=== PATIENT | male | born 1985 | race Caucasian/White ===

== ENCOUNTER → 2017-08-06 | Outpatient (REF) ==
--- NOTE | 2017-08-06 15:39 | Diagnostic Imaging Report ---
INDICATION: Pre-MRI screening. TIME OF EXAMINATION: 3:44 PM. IMPRESSION: No radiopaque orbital foreign body is detected. Dictated by: Dictated on workstation # [id number]
--- NOTE | 2017-08-06 16:51 | Diagnostic Imaging Report ---
PROCEDURE: MRI right joint upper extremity without contrast. TECHNIQUE: Multiplanar, multisequence non contrast-enhanced MRI of the right upper extremity was accomplished. INDICATION: Previous shoulder injury with shoulder pain following heavy lifting. FINDINGS: Rotator cuff: The supraspinatus, infraspinatus, and subscapularis tendons are intact. The labrum appears intact in good position. Long head of the biceps is in the bicipital groove and attaches to the labral surface normally. Bones and cartilage: Humeral head is in normal articulation with the glenoid. Chondral cartilage is intact. Marrow signal is normal throughout. AC joint shows good alignment without hypertrophic change. Soft tissues and bursa: The bursa appears normal. There is no evidence of synovial fluid. No evidence of paralabral cyst. The surrounding muscles appear normal. IMPRESSION: Normal MRI of the right shoulder. Dictated by: Dictated on workstation # [id number]
== END | disposition home or self-care (01) ==
LOC: OCC 14:58
PROVIDERS: ATTEND Nurse Practitioner Family
CPT/HCPCS: 70250; 73221

== ENCOUNTER 2017-10-29 15:09 | Outpatient (RCR) | payer OTHER | END 2017-10-29 15:37 | disposition home or self-care (01) | PROVIDERS: ATTEND Nurse Practitioner Family | DX: M75.91 Shoulder lesion, unspecified, right shoulder (principal) ==

== ENCOUNTER → 2018-07-19 | Outpatient (CLI) | payer OTHER ==
--- NOTE | 2018-07-19 19:25 | Diagnostic Imaging Report ---
PROCEDURE: MR imaging cervical spine without contrast. TECHNIQUE: Multiplanar, multisequence MR imaging of the cervical spine was performed without contrast. INDICATION: Right shoulder pain. COMPARISON: None. FINDINGS: Normal alignment. Vertebral body heights preserved. Normal bone marrow signal. No abnormal signal in the cervical spinal cord. No substantial spondylotic change. No spinal canal or neural foraminal narrowing. The visualized paravertebral soft tissues are unremarkable. IMPRESSION: Negative MRI cervical spine. Dictated by: Dictated on workstation # [id number]
== END ==
LOC: RAD 15:01
PROVIDERS: ATTEND Nurse Practitioner Family
DX: M25.511 Pain in right shoulder (principal)
CPT/HCPCS: 72141

== ENCOUNTER 2019-04-29 12:19 | Emergency (ER) | payer SELFPAY ==
[~2019-04-29] VITALS: Ht 175 cm; Wt 69.5 kg
--- NOTE | 2019-04-29 12:25 | ED General ---
General Stated Complaint: DIARRHEA; DARK STOOL; VOMITING History of Present Illness Date Seen by Provider: Apr 29, 2019 Time Seen by Provider: 12:24 Initial Comments Patient presenting to emergency department for evaluation of nausea vomiting diarrhea and black stools. He says he ate fast food last Sunday and started getting diarrhea that evening and then the next day started having vomiting. Said the emesis is coffee-ground in appearance and the diarrhea was initially watery but yesterday he had a black tarry stool at approximately 2 and afternoon and he has been having epigastric abdominal pain so he then took Pepto-Bismol last night and had another black tarry stool again this morning. He says the pain in the epigastrium is crampy sometimes sharp. He says he has a physical job and does take ibuprofen frequently but he did not think it was daily. He says he drinks alcohol on Sunday evenings but not on a regular basis. He is in no obvious distress with normal vital signs except hypertension noted. Allergies and Home Medications Allergies Coded Allergies: No Known Drug Allergies (Unverified , 04/29/19) Patient Home Medication List Home Medication List Reviewed: Yes Review of Systems Review of Systems Constitutional: no symptoms reported EENTM: no symptoms reported Respiratory: no symptoms reported Cardiovascular: no symptoms reported Gastrointestinal: abdominal pain, diarrhea, nausea, vomiting Genitourinary: no symptoms reported Musculoskeletal: no symptoms reported Skin: no symptoms reported Psychiatric/Neurological: No Symptoms Reported All Other Systems Reviewed Negative Unless Noted: Yes Past Bkwziop-Pbvjql-Bowtew Hx Patient Social History Recent Foreign Travel: No Contact w/Someone Who Travel: No Physical Exam Vital Signs Vital Signs - First Documented 04/29/19 12:31 Temp 36.8 Pulse 91 Resp 18 B/P (MAP) 155/106 (122) Pulse Ox 99 O2 Delivery Room Air Capillary Refill : Height, Weight, BMI Height: '" Weight: lbs. oz. kg; BMI Method: General Appearance: No Apparent Distress, WD/WN Neck: Supple Respiratory: Normal Breath Sounds, No Respiratory Distress Cardiovascular: Regular Rate, Rhythm Gastrointestinal: Soft; No Guarding, No Rebound; Tenderness (epigastric) Rectal: Heme Negative Stool, Black Stool Back: Normal Inspection Extremity: Normal Capillary Refill Neurologic/Psychiatric: Alert, Oriented x3 Skin: Warm/Dry Progress/Results/Core Measures Suspected Sepsis SIRS Temperature: Pulse: Respiratory Rate: Laboratory Tests 04/29/19 12:55: White Blood Count 4.1L Blood Pressure / Mean: Laboratory Tests 04/29/19 12:55: Creatinine 0.96, INR Comment 1.0, Platelet Count 211, Total Bilirubin 0.2 Results/Orders Lab Results Laboratory Tests Test 04/29/19 12:55 Range/Units White Blood Count 4.1 L 4.3-11.0 10^3/uL Red Blood Count 4.43 4.35-5.85 10^6/uL Hemoglobin 14.1 13.3-17.7 G/DL Hematocrit 41 40-54 % Mean Corpuscular Volume 93 80-99 FL Mean Corpuscular Hemoglobin 32 25-34 PG Mean Corpuscular Hemoglobin Concent 34 32-36 G/DL Red Cell Distribution Width 13.1 10.0-14.5 % Platelet Count 211 130-400 10^3/uL Mean Platelet Volume 10.8 H 7.4-10.4 FL Neutrophils (%) (Auto) 49 42-75 % Lymphocytes (%) (Auto) 36 12-44 % Monocytes (%) (Auto) 11 0-12 % Eosinophils (%) (Auto) 3 0-10 % Basophils (%) (Auto) 1 0-10 % Neutrophils # (Auto) 2.0 1.8-7.8 X 10^3 Lymphocytes # (Auto) 1.5 1.0-4.0 X 10^3 Monocytes # (Auto) 0.5 0.0-1.0 X 10^3 Eosinophils # (Auto) 0.1 0.0-0.3 10^3/uL Basophils # (Auto) 0.0 0.0-0.1 10^3/uL Prothrombin Time 13.6 12.2-14.7 SEC INR Comment 1.0 0.8-1.4 Activated Partial Thromboplast Time 29 24-35 SEC Sodium Level 143 135-145 MMOL/L Potassium Level 4.1 3.6-5.0 MMOL/L Chloride Level 104 98-107 MMOL/L Carbon Dioxide Level 25 21-32 MMOL/L Anion Gap 14 5-14 MMOL/L Blood Urea Nitrogen 10 7-18 MG/DL Creatinine 0.96 0.60-1.30 MG/DL Estimat Glomerular Filtration Rate > 60 BUN/Creatinine Ratio 10 Glucose Level 96 70-105 MG/DL Calcium Level 9.5 8.5-10.1 MG/DL Corrected Calcium 8.5-10.1 MG/DL Total Bilirubin 0.2 0.1-1.0 MG/DL Aspartate Amino Transf (AST/SGOT) 32 5-34 U/L Alanine Aminotransferase (ALT/SGPT) 35 0-55 U/L Alkaline Phosphatase 60 40-136 U/L Total Protein 7.6 6.4-8.2 GM/DL Albumin 4.7 H 3.2-4.5 GM/DL Lipase 24 8-78 U/L My Orders Orders - CHITO LOPEZ DO Cbc With Automated Diff (04/29/19 12:39) Comprehensive Metabolic Panel (04/29/19 12:39) Lipase (04/29/19 12:39) Ct Abdomen/Pelvis W (04/29/19 12:39) Partial Thromboplastin Time (04/29/19 12:39) Protime With Inr (04/29/19 12:39) Pantoprazole Injection (Protonix Injecti (04/29/19 12:45) Lidocaine 2% Viscous 15 Ml (Xylocaine Vi (04/29/19 12:45) Antacid Suspension (Mylanta Suspension (04/29/19 12:45) Ns Iv 1000 Ml (Sodium Chloride 0.9%) (04/29/19 12:45) Ondansetron Injection (Zofran Injectio (04/29/19 12:45) Fentanyl Injection (Sublimaze Injection (04/29/19 12:45) Medications Given in ED Current Medications Medications Dose Ordered Sig/Reagan Route Start Time Stop Time Status Last Admin Dose Admin Al Hydrox/Mg Hydrox/Simethicone 30 ml ONCE ONCE PO 04/29/19 12:45 04/29/19 12:46 DC 04/29/19 12:57 30 ML Fentanyl Citrate 50 mcg ONCE ONCE IVP 04/29/19 12:45 04/29/19 12:46 DC 04/29/19 12:57 50 MCG Lidocaine HCl 5 ml ONCE ONCE PO 04/29/19 12:45 04/29/19 12:46 DC 04/29/19 12:58 5 ML Ondansetron HCl 4 mg ONCE ONCE IVP 04/29/19 12:45 04/29/19 12:46 DC 04/29/19 12:57 4 MG Pantoprazole 80 mg ONCE ONCE IV 04/29/19 12:45 04/29/19 12:46 DC 04/29/19 12:57 80 MG Vital Signs/I&O 04/29/19 12:31 Temp 36.8 Pulse 91 Resp 18 B/P (MAP) 155/106 (122) Pulse Ox 99 O2 Delivery Room Air Capillary Refill : Progress Note : Progress Note He appears nontoxic and has normal vital signs. I was somewhat surprised if the Hemoccult test was negative as he is having black stools but I suppose it could be from the Pepto. He did have a black stool yesterday without taking the Pepto-Bismol. I will check labs imaging treat symptoms and reassess. Patient's workup came back completely normal with no signs of anemia and normal creatinine BUNs with normal CT. I suspect he may have some GI bleeding but no active bleeding going on at this time. Given his pain is epigastrium with NSAID use I told him he likely has at least a gastritis and possibly an ulcer. He said he has a primary care provider and would like to go home and follow-up as an outpatient possible. I told him he can do this but he would need to rest his bowels with a mostly liquid diet avoid NSAIDs and alcohol take Prilosec daily and follow primary care provider within 2-3 days as he may need GI follow-up with upper endoscopy. Patient aware and agreeable with plan for discharge and verbalized understanding of the need for short-term follow-up and strict ED return precautions discussed including worsening pain fevers vomiting or other general concerns. Departure Impression Primary Impression: Abdominal pain Additional Impressions: Nausea and vomiting Diarrhea GI bleed Disposition: 01 HOME, SELF-CARE Condition: Stable Departure-Patient Inst. Referrals: [facility] (PCP) Primary Care Physician KRISTINA AYALA APRN (Family) Primary Care Physician Patient Instructions: Gastritis (DC) Add. Discharge Instructions: liquid diet no nsaids or alcohol prilosec daily f/u with pcp as you may need GI referral with persistent symptoms. Scripts Hydrocodone/Acetaminophen (Hydrocodone/Acetaminophen 5 MG/325 MG TAB) 1 Each Tablet 1 TAB PO Q6H for Pain MDD 10 TABS for 7 Days, #10 TAB Prov: CHITO LOPEZ DO 04/29/19 Ondansetron (Ondansetron Odt) 4 Mg Tab.rapdis 4 MG PO Q6H PRN for NAUSEA/VOMITING-1ST LINE, #14 TAB Prov: CHITO LOPEZ DO 04/29/19 Omeprazole Magnesium (Prilosec Otc) 20 Mg Tablet.dr 40 MG PO DAILY, #30 TAB Prov: CHITO LOPEZ DO 04/29/19 Work/School Note: Work Release Form Date Seen in the Emergency Department: Apr 29, 2019 Return to Work: Apr 30, 2019 Restrictions: No Restrictions CHITO LOPEZ DO Apr 29, 2019 12:25
[2019-04-29] MEDS ORDERED: LIDOCAINE 2% VISCOUS 15 ML UDC PO ONE (12:45)
[2019-04-29] MEDS ORDERED: ONDANSETRON 4 MG/2 ML (SDV) Z0FRAN IVP ONE (12:45)
[2019-04-29] MEDS ORDERED: NS IV 1000 ML 1,000 ML IV SCH (12:45)
[2019-04-29] MEDS ORDERED: fentaNYL INJECTION 100 MCG/2 ML AMP IVP ONE (12:45)
[2019-04-29] MEDS ORDERED: ANTACID SUSP 30 ML UDC (MYLANTA) PO ONE (12:45)
[2019-04-29] MEDS ORDERED: PANTOPRAZOLE 40 MG (PROTONIX) VIAL IV ONE (12:45)
[2019-04-29 13:17] LABS: HEMATOCRIT 41 % (40-54); HEMOGLOBIN 14.1 G/DL (13.3-17.7); MEAN CORPUSCULAR HEMOGLOBIN 32 PG (25-34); WHITE BLOOD COUNT 4.1 10^3/uL (4.3-11.0)
[2019-04-29 13:18] LABS: BASOPHILS % (AUTO) 1 % (0-10); EOSINOPHILS # (AUTO) 0.1 10^3/uL (0.0-0.3); EOSINOPHILS % (AUTO) 3 % (0-10); LYMPHOCYTES # (AUTO) 1.5 X 10^3 (1.0-4.0); LYMPHOCYTES % (AUTO) 36 % (12-44); MEAN CORPUSCULAR HGB CONC 34 G/DL (32-36); MEAN CORPUSCULAR VOLUME 93 FL (80-99); MEAN PLATELET VOLUME 10.8 FL (7.4-10.4); MONOCYTES # (AUTO) 0.5 X 10^3 (0.0-1.0); MONOCYTES % (AUTO) 11 % (0-12); NEUTROPHILS % (AUTO) 49 % (42-75); PLATELET COUNT 211 10^3/uL (130-400); RED CELL DISTRIBUTION WIDTH 13.1 % (10.0-14.5)
[2019-04-29 13:41] LABS: PROTHROMBIN TIME PATIENT 13.6 SEC (12.2-14.7)
[2019-04-29 13:42] LABS: ALANINE AMINOTRANSFERASE 35 U/L (0-55); ALKALINE PHOSPHATASE 60 U/L (40-136); BILIRUBIN,TOTAL 0.2 MG/DL (0.1-1.0); BUN/CREATININE RATIO 10; CALCIUM 9.5 MG/DL (8.5-10.1); CARBON DIOXIDE 25 MMOL/L (21-32); CHLORIDE 104 MMOL/L (98-107); CREATININE SERUM 0.96 MG/DL (0.60-1.30); GFR ESTIMATED > 60; GLUCOSE 96 MG/DL (70-105); POTASSIUM 4.1 MMOL/L (3.6-5.0); SODIUM 143 MMOL/L (135-145)
[2019-04-29 13:43] LABS: ALBUMIN 4.7 GM/DL (3.2-4.5); LIPASE 24 U/L (8-78); TOTAL PROTEIN 7.6 GM/DL (6.4-8.2)
--- OUTSIDE RECORDS SUMMARY | 2019-04-29 14:05 | XMS REPORT ---
Author Author Bran CAMARILLO Organization [facility] Address [address] [place] [address] Care Team Providers Care Naval Gunfire Liaison Officer Name Role Phone BELLA CAMARILLO Unavailable PROBLEMS Type Condition ICD9-CM Code [id number] Code Onset Dates Condition S tatus SNOMED Code Problem Tobacco abuse counseling Z71.6 Activ e 035480948 Problem Illicit drug use F19.90 Active 307 257267 Problem Tobacco abuse Z72.0 Active 798073 05 Assessment Primary insomnia F51.01 Oct, Active 1460479 Assessment Anxiety F41.9 Oct, Active 912217 02 Assessment Essential hypertension I10 Oct, Act lakeshia 00403658 Problem Routine health maintenance Z00.00 Act lakeshia 466735789 Problem Hypertension I10 Active 2378522 3 Problem Family history of cancer Z80.9 Activ e 325694082 Problem Anxiety associated with depression F41.8 Active 473162374 Problem Family history of diabetes mellitus Z83.3 Active 000930598 Problem Family history of heart disease Z82.49 Active 355286697 ALLERGIES Substance Reaction Event Type Date Status N.K.D.A. Unknown Non Drug Allergy Oct, Unknown SOCIAL HISTORY No smoking Hx information available PLAN OF CARE VITAL SIGNS Height 69 in 2015-10-21 Weight 222.8 lbs 2015-10-21 Heart Rate 74 bpm 2015-10-21 Respiratory Rate 20 2015-10-21 BMI 32.90 kg/m2 2015-10-21 Blood pressure systolic 129 mmHg 2015-10-21 Blood pressure diastolic 84 mmHg 2015-10-21 MEDICATIONS Medication Instructions Dosage Frequency Start Date End Date Duration S tatus Atenolol 25 MG Orally Once a day 1 tablet 24h May, Active Lisinopril 10 mg Orally Once a day 1 tablet 24h May, Active Multivitamins Active Ambien 5 mg Orally Once a day 1 tablet at bedtime 24h Oct, Active Trazodone HCl 100 MG Orally Once a day Take 1/2 to 1 table t each night at bedtime. 24h June, Active RESULTS No Results PROCEDURES Procedure Date Ordered Related Diagnosis Body Site Office Visit, Est Pt., Level 3 Oct 21, 2015 IMMUNIZATIONS No Known Immunizations
--- OUTSIDE RECORDS SUMMARY | 2019-04-29 14:05 | XMS REPORT ---
Author Author Bran CAMARILLO Organization [facility] Address [address] [place] [address] Care Team Providers Care Conveyor Attendant Name Role Phone BELLA CAMARILLO Unavailable PROBLEMS Type Condition ICD9-CM Code RBL75-[id number] Code Onset Dates Condition S tatus SNOMED Code Problem Hypertriglyceridemia without hypercholesterolemia E78.1 Active 755348707 Problem Hypertension I10 Active 9776328 3 Problem Anxiety associated with depression F41.8 Active 682549139 Problem Neuropathy G62.9 Active 869920389 Problem Overweight (BMI 25.0-29.9) E66.3 Act lakeshia 359619049 Problem Adjustment disorder with anxiety F43.22 Active 86908508 Problem Controlled substance agreement signed Z79.899 Active 040466351 Problem Panic disorder/agoraphobia, mild agrphob c avoid/panc attck partl rmssn F40.01 Active 76156494 Problem Social phobia, generalized F40.11 Act lakeshia 15466564 ALLERGIES No Information ENCOUNTERS Encounter Location Date Diagnosis [facility] [address] [place] [id number] [place] [phone] Aug, [facility] [address] [place] [id number] [place] [phone] Aug, Anxiety associated with depr ession F41.8 ; Hypertension I10 ; Hypertriglyceridemia without hypercholesterolemia E78.1 ; Pain in right elbow M25.521 ; Pain in left elbow M25.522 ; Neuropathy G62.9 and Overweight (BMI 25.0-29.9) E66.3 [facility] [address] [place] [id number] [place] [phone] Jul, Anxiety associated with depr ession F41.8 and Hypertension I10 [facility] [address] [place] [id number] [place] [phone] 13 Mar, 2017 Hypertension I10 ; Anxiety a ssociated with depression F41.8 ; Tobacco abuse Z72.0 ; Tobacco abuse counseling Z71.6 ; Hypertriglyceridemia without hypercholesterolemia E78.1 ; Overweight (BMI 25.0-29.9) E66.3 ; Social phobia, generalized F40.11 and Panic disorder/agoraphobia, mild agrphobc avoid/panc attck partl rmssn F40.01 [place] [address] [address] 12 Mar, 2017 Controlled substance agreeme nt signed Z79.[address] [address] Feb, Hypertension I10 ; Anxiety a ssociated with depression F41.8 and Adjustment disorder with anxiety F43.22 [place] [address] [address] Feb, [place] [address] [address] Aug, Anxiety associated with depr ession F41.8 and Adjustment disorder with anxiety F43.22 [place] [address] [address] Jul, Hypertension I10 ; Adjustmen t disorder with anxiety F43.22 ; Hypertriglyceridemia without hypercholesterolemia E78.1 ; Overweight (BMI 25.0- 29.9) E66.3 and Major depression, melancholic type F32.9 [place] [address] [address] Apr, Major depression, melancholi c type F32.9 and Anxiety associated with depression F41.8 [place] [address] [address] 28 Mar, 2016 Hypertension I10 ; Major dep ression, melancholic type F32.9 ; Hypertriglyceridemia without hypercholesterolemia E78.1 and Overweight (BMI 25.0-29.9) E66.3 [place] [address] [address] Feb, Family history of heart dise ase Z82.49 [place] [address] [address] Feb, [place] [address] [address] Feb, [address] [address] Feb, Adjustment disorder with anx iety F43.22 ; Social phobia, generalized F40.11 ; Panic disorder/agoraphobia, mild agrphobc avoid/panc attck partl rmssn F40.01 and Major depression, melancholic type F32.[address] [address] Feb, Hypertension I10 ; Anxiety a ssociated with depression F41.8 ; Controlled substance agreement signed Z79.899 ; Routine health maintenance Z00.00 and Family history of diabetes mellitus Z83.3 [place] [address] [address] 08 Oct, 2015 Essential hypertension I10 ; Anxiety F41.9 and Primary insomnia F51.01 [place] [address] [address] Sep, [address] [address] June, Hypertension I10 and Anxiety associated with depression F41.[address] [address] May, Routine health maintenance Z 00.00 ; Hypertension I10 ; Family history of diabetes mellitus Z83.3 ; Family history of heart disease Z82.49 ; Family history of cancer Z80.9 ; Anxiety associated with depression F41.8 ; Illicit drug use F19.90 ; Tobacco abuse Z72.0 and Tobacco abuse counseling Z71.6 IMMUNIZATIONS No Known Immunizations SOCIAL HISTORY Never Assessed REASON FOR VISIT Medication refill request PLAN OF CARE VITAL SIGNS MEDICATIONS Medication Instructions Dosage Frequency Start Date End Date Duration S ingrid Atenolol 25 MG Orally Once a day 1 tablet 24h May, 6 Months Active Trazodone HCl 100 MG Orally Once a day 1 tablet at bedtime 24h 1 June, 90 days Active Clonazepam 0.5 MG Orally Twice a day PRN 1 tablet Feb, 28 days Active RESULTS No Results PROCEDURES No Known procedures INSTRUCTIONS MEDICATIONS ADMINISTERED No Known Medications MEDICAL (GENERAL) HISTORY Type Description Date Medical History anxiety Medical History hypertension Medical History depression Medical History hypertriglyceridemia Medical History fomer smoker- quit 2017 Surgical History right inguinal hernia repair Hospitalization History Surgery only
--- OUTSIDE RECORDS SUMMARY | 2019-04-29 14:05 | XMS REPORT ---
Author Author Bran CAMARILLO Organization [facility] Address [address] [place] [address] Care Team Providers Care Rubber Belt Splicer Name Role Phone BELLA CAMARILLO Unavailable PROBLEMS Type Condition ICD9-CM Code [id number] Code Onset Dates Condition S tatus SNOMED Code Problem Tobacco abuse Z72.0 Active 855409 05 Problem Tobacco abuse counseling Z71.6 Activ e 861607751 Problem Hypertension I10 Active 0595039 3 Problem Hypertriglyceridemia without hypercholesterolemia E78.1 Active 556575387 Problem Anxiety associated with depression F41.8 Active 273715818 Problem Overweight (BMI 25.0-29.9) E66.3 Act lakeshia 498913834 Problem Major depression, melancholic type F32.9 Active 500696826 Problem Panic disorder/agoraphobia, mild agrphob c avoid/panc attck partl rmssn F40.01 Active 08191191 Problem Controlled substance agreement signed Z79.899 Active 736991189 Problem Social phobia, generalized F40.11 Act lakeshia 98803006 Problem Adjustment disorder with anxiety F43.22 Active 57812736 ALLERGIES No Information ENCOUNTERS Encounter Location Date Diagnosis [facility] [address] [facility] [id number] [place] [phone] Aug, [facility] [address] [facility] [id number] [address] [place] [phone] 13 Jul, 2017 Anxiety associated with depr ession F41.8 and Hypertension I10 [facility] [address] [place] [id number] [place] [phone] 13 Mar, 2017 Hypertension I10 ; Anxiety a ssociated with depression F41.8 ; Tobacco abuse Z72.0 ; Tobacco abuse counseling Z71.6 ; Hypertriglyceridemia without hypercholesterolemia E78.1 ; Overweight (BMI 25.0-29.9) E66.3 ; Social phobia, generalized F40.11 and Panic disorder/agoraphobia, mild agrphobc avoid/panc attck partl rmssn F40.01 [place] [address] [address] 12 Mar, 2017 Controlled substance agreeme nt signed Z79.899 [place] [address] [address] Feb, Hypertension I10 ; Anxiety a ssociated with depression F41.8 and Adjustment disorder with anxiety F43.22 [place] [address] [address] Feb, [place] [address] [address] Aug, Anxiety associated with depr ession F41.8 and Adjustment disorder with anxiety F43.22 [place] [address] [address] Jul, Hypertension I10 ; Adjustmen t disorder with anxiety F43.22 ; Hypertriglyceridemia without hypercholesterolemia E78.1 ; Overweight (BMI 25.0- 29.9) E66.3 and Major depression, melancholic type F32.9 [place] [address] [address] Apr, Major depression, melancholi c type F32.9 and Anxiety associated with depression F41.8 [place] [address] [address] Mar, Hypertension I10 ; Major dep ression, melancholic type F32.9 ; Hypertriglyceridemia without hypercholesterolemia E78.1 and Overweight (BMI 25.0-29.9) E66.3 [place] [address] [address] Feb, Family history of heart dise ase Z82.49 [place] [address] [address] Feb, [place] [id number] [place] [phone] Feb, [address] [address] Feb, Adjustment disorder with anx iety F43.22 ; Social phobia, generalized F40.11 ; Panic disorder/agoraphobia, mild agrphobc avoid/panc attck partl rmssn F40.01 and Major depression, melancholic type F32.9 [place] [id number] [place] [address] Feb, Hypertension I10 ; Anxiety a ssociated with depression F41.8 ; Controlled substance agreement signed Z79.899 ; Routine health maintenance Z00.00 and Family history of diabetes mellitus Z83.[address] [address] Oct, Essential hypertension I10 ; Anxiety F41.9 and Primary insomnia F51.[address] [address] Sep, [address] [address] June, Hypertension I10 and Anxiety associated with depression F41.[address] [address] May, Routine health maintenance Z 00.00 ; Hypertension I10 ; Family history of diabetes mellitus Z83.3 ; Family history of heart disease Z82.49 ; Family history of cancer Z80.9 ; Anxiety associated with depression F41.8 ; Illicit drug use F19.90 ; Tobacco abuse Z72.0 and Tobacco abuse counseling Z71.6 IMMUNIZATIONS No Known Immunizations SOCIAL HISTORY Never Assessed REASON FOR VISIT Refill request PLAN OF CARE VITAL SIGNS MEDICATIONS Medication Instructions Dosage Frequency Start Date End Date Duration S tatus Clonazepam 0.5 MG Orally Twice a day PRN 1 tablet Feb, 28 days Active Atenolol 25 MG Orally Once a day 1 tablet 24h May, 9 0 days Active Trazodone HCl 50 mg Orally Once a day 1-2 tablet at bedtime 24h June, 90 days Active RESULTS No Results PROCEDURES No Known procedures INSTRUCTIONS MEDICATIONS ADMINISTERED No Known Medications MEDICAL (GENERAL) HISTORY Type Description Date Medical History anxiety Medical History hypertension Surgical History right inguinal hernia repair Hospitalization History Surgery only
--- OUTSIDE RECORDS SUMMARY | 2019-04-29 14:05 | XMS REPORT ---
Author Author Bran CAMARILLO Organization [facility] Address [address] [place] [address] Care Team Providers Care Construction Engineering Manager Name Role Phone BELLA CAMARILLO Unavailable PROBLEMS Type Condition ICD9-CM Code [id number] Code Onset Dates Condition S tatus SNOMED Code Problem Hypertriglyceridemia without hypercholesterolemia E78.1 Active 425815378 Problem Hypertension I10 Active 3052429 3 Problem Anxiety associated with depression F41.8 Active 469328292 Problem Neuropathy G62.9 Active 272312470 Problem Overweight (BMI 25.0-29.9) E66.3 Act [facility] 588679805 Problem Adjustment disorder with anxiety F43.22 Active 89745938 Problem Controlled substance agreement signed Z79.899 Active 558741144 Problem Panic disorder/agoraphobia, mild agrphob c avoid/panc attck partl rmssn F40.01 Active 49644812 Problem Social phobia, generalized F40.11 Act [facility] [id number] ALLERGIES No Known Allergies ENCOUNTERS Encounter Location Date Diagnosis [place] [address] [facility] [id number] [address] [place] [address] Oct, Pain in right elbow M25.521 and Anxiety associated with depression F41.8 [facility] [address] [id number] [address] [place] [address] Aug, [facility] [address] [id number] [address] [place] [address] Aug, Anxiety associated with depr ession F41.8 ; Hypertension I10 ; Hypertriglyceridemia without hypercholesterolemia E78.1 ; Pain in right elbow M25.521 ; Pain in left elbow M25.522 ; Neuropathy G62.9 and Overweight (BMI 25.0-29.9) E66.3 [facility] [address] [id number] [address] [place] [address] Jul, Anxiety associated with depr ession F41.8 and Hypertension I10 [place] [address] [address] 13 Mar, 2017 Hypertension I10 ; Anxiety a ssociated with depression F41.8 ; Tobacco abuse Z72.0 ; Tobacco abuse counseling Z71.6 ; Hypertriglyceridemia without hypercholesterolemia E78.1 ; Overweight (BMI 25.0-29.9) E66.3 ; Social phobia, generalized F40.11 and Panic disorder/agoraphobia, mild agrphobc avoid/panc attck partl rmssn F40.01 [place] [address] [address] 12 Mar, 2017 Controlled substance agreeme nt signed Z79.[address] [address] Feb, Hypertension I10 ; Anxiety a ssociated with depression F41.8 and Adjustment disorder with anxiety F43.22 [place] [address] [address] Feb, [place] [address] [address] Aug, Anxiety associated with depr ession F41.8 and Adjustment disorder with anxiety F43.22 [place] [address] [address] Jul, Hypertension I10 ; Adjustmen t disorder with anxiety F43.22 ; Hypertriglyceridemia without hypercholesterolemia E78.1 ; Overweight (BMI 25.0- 29.9) E66.3 and Major depression, melancholic type F32.9 [place] [address] [place] [id number] [address] [place] [address] Apr, Major depression, melancholi c type F32.9 and Anxiety associated with depression F41.8 [place] [address] [place] [id number] [address] [place] [address] Mar, Hypertension I10 ; Major dep ression, melancholic type F32.9 ; Hypertriglyceridemia without hypercholesterolemia E78.1 and Overweight (BMI 25.0-29.9) E66.3 [place] [address] [address] Feb, Family history of heart dise ase Z82.[address] [address] Feb, [place] [address] [address] Feb, [address] [address] Feb, Adjustment disorder with anx iety F43.22 ; Social phobia, generalized F40.11 ; Panic disorder/agoraphobia, mild agrphobc avoid/panc attck partl rmssn F40.01 and Major depression, melancholic type F32.9 [place] [address] [address] Feb, Hypertension I10 ; Anxiety a ssociated with depression F41.8 ; Controlled substance agreement signed Z79.899 ; Routine health maintenance Z00.00 and Family history of diabetes mellitus Z83.[address] [address] Oct, Essential hypertension I10 ; Anxiety F41.9 and Primary insomnia F51.01 [place] [address] [address] Sep, [address] [address] June, Hypertension I10 and Anxiety associated with depression F41.[address] [address] May, Routine health maintenance Z 00.00 ; Hypertension I10 ; Family history of diabetes mellitus Z83.3 ; Family history of heart disease Z82.49 ; Family history of cancer Z80.9 ; Anxiety associated with depression F41.8 ; Illicit drug use F19.90 ; Tobacco abuse Z72.0 and Tobacco abuse counseling Z71.6 IMMUNIZATIONS No Known Immunizations SOCIAL HISTORY Never Assessed REASON FOR VISIT Anxiety follow up-V[facility]ant[facility] is currently on workmans comp, going through P T and dx as nerve injury, Aches throughout body, family hx of RA PLAN OF CARE Activity Details Follow Up 3 Months, prn Reason:CHM/Anx iety VITAL SIGNS Height 69 in 2017-09-04 Weight 184.6 lbs 2017-09-04 Temperature 98.2 degrees Fahrenheit 2017-09-04 Heart Rate 84 bpm 2017-09-04 Respiratory Rate 18 2017-09-04 BMI 27.26 kg/m2 2017-09-04 Blood pressure systolic 134 mmHg 2017-09-04 Blood pressure diastolic 84 mmHg 2017-09-04 MEDICATIONS Medication Instructions Dosage Frequency Start Date End Date Duration S tatus Clonazepam 0.5 MG Orally Twice a day PRN 1 tablet Feb, 28 days Active Naproxen 500 mg Orally Twice a day 1 tablet 12h Active Gemfibrozil 600 MG Orally Twice a day, 30 min before meals 1 tablet Feb, 90 days Active Trazodone HCl 100 MG Orally Once a day 1 tablet at bedtime 24h 1 7 Jun, 2015 90 days Active Atenolol 25 MG Orally Once a day 1 tablet 24h May, 9 0 days Active Lisinopril 10 mg Orally Once a day 1 tablet 24h May, 90 days Active Cymbalta 60 mg Orally Once a day 1 capsule 24h Aug, 60 days Active RESULTS No Results PROCEDURES Procedure Date Ordered Result Body Site COMPLETE CBC W/AUTO DIFF WBC September 04, 2017 COMPREHEN METABOLIC PANEL September 04, 2017 VENIPUNCT, ROUTINE* September 04, 2017 RHEUMATOID FACTOR, QUANT September 04, 2017 LIPID PANEL September 04, 2017 DRUG TEST PRSMV CHEM ANLYZR September 04, 2017 ASSAY THYROID STIM HORMONE September 04, 2017 INSTRUCTIONS MEDICATIONS ADMINISTERED No Known Medications MEDICAL (GENERAL) HISTORY Type Description Date Medical History anxiety Medical History hypertension Medical History depression Medical History hypertriglyceridemia Medical History fomer smoker- quit 2018 Surgical History right inguinal hernia repair Hospitalization History Surgery only
--- OUTSIDE RECORDS SUMMARY | 2019-04-29 14:05 | XMS REPORT ---
Author Author Bran CAMARILLO Organization [facility] Address [address] [place] [address] Care Team Providers Care Technical Publications Writer Name Role Phone BELLA CAMARILLO Unavailable PROBLEMS Type Condition ICD9-CM Code [id number] Code Onset Dates Condition S tatus SNOMED Code Problem Hypertriglyceridemia without hypercholesterolemia E78.1 Active 255818718 Problem Hypertension I10 Active 2177515 3 Problem Anxiety associated with depression F41.8 Active 766249236 Problem Neuropathy G62.9 Active 013985614 Problem Overweight (BMI 25.0-29.9) E66.3 Act [facility] 827610750 Problem Adjustment disorder with anxiety F43.22 Active 22621180 Problem Controlled substance agreement signed Z79.899 Active 198194781 Problem Panic disorder/agoraphobia, mild agrphob c avoid/panc attck partl rmssn F40.01 Active 70476745 Problem Social phobia, generalized F40.11 Act [facility] [id number] ALLERGIES No Information ENCOUNTERS Encounter Location Date Diagnosis [place] [id number] [facility] [id number] [address] [place] [address] Oct, Pain in right elbow M25.521 and Anxiety associated with depression F41.8 [facility] [address] [facility] [id number] [address] [place] [phone] Aug, [facility] [address] [facility] [id number] [address] [place] [address] Aug, Anxiety associated with depr ession F41.8 ; Hypertension I10 ; Hypertriglyceridemia without hypercholesterolemia E78.1 ; Pain in right elbow M25.521 ; Pain in left elbow M25.522 ; Neuropathy G62.9 and Overweight (BMI 25.0-29.9) E66.3 [facility] [address] [facility] [id number] [address] [place] [address] Jul, Anxiety associated with depr ession F41.8 and Hypertension I10 [place] [address] [address] 13 Mar, 2017 Hypertension I10 ; Anxiety a ssociated with depression F41.8 ; Tobacco abuse Z72.0 ; Tobacco abuse counseling Z71.6 ; Hypertriglyceridemia without hypercholesterolemia E78.1 ; Overweight (BMI 25.0-29.9) E66.3 ; Social phobia, generalized F40.11 and Panic disorder/agoraphobia, mild agrphobc avoid/panc attck partl rmssn F40.01 [place] [address] [address] 12 Mar, 2017 Controlled substance agreeme nt signed Z79.899 [place] [address] [address] Feb, Hypertension I10 ; Anxiety a ssociated with depression F41.8 and Adjustment disorder with anxiety F43.22 [place] [address] [address] Feb, [place] [address] [address] Aug, Anxiety associated with depr ession F41.8 and Adjustment disorder with anxiety F43.22 [place] [address] [address] Jul, Hypertension I10 ; Adjustmen t disorder with anxiety F43.22 ; Hypertriglyceridemia without hypercholesterolemia E78.1 ; Overweight (BMI 25.0- 29.9) E66.3 and Major depression, melancholic type F32.9 [place] [address] [place] [id number] [address] [place] [address] Apr, Major depression, melancholi c type F32.9 and Anxiety associated with depression F41.8 [place] [address] [address] Mar, Hypertension I10 ; Major dep ression, melancholic type F32.9 ; Hypertriglyceridemia without hypercholesterolemia E78.1 and Overweight (BMI 25.0-29.9) E66.3 [place] [address] [address] Feb, Family history of heart dise ase Z82.[address] [address] Feb, [place] [address] [address] Feb, [address] [address] Feb, Adjustment disorder with anx iety F43.22 ; Social phobia, generalized F40.11 ; Panic disorder/agoraphobia, mild agrphobc avoid/panc attck partl rmssn F40.01 and Major depression, melancholic type F32.[address] [address] Feb, Hypertension I10 ; Anxiety a ssociated with depression F41.8 ; Controlled substance agreement signed Z79.899 ; Routine health maintenance Z00.00 and Family history of diabetes mellitus Z83.[address] [address] Oct, Essential hypertension I10 ; Anxiety F41.9 and Primary insomnia F51.01 [place] [id number] [address] [place] [phone] Sep, [address] [address] June, Hypertension I10 and Anxiety associated with depression F41.8 [place] [id number] [address] [place] [phone] May, Routine health maintenance Z 00.00 ; [...] Start Date End Date Duration S ingrid Clonazepam 0.5 MG Orally Twice a day PRN 1 tablet Feb, 28 days Active Trazodone HCl 100 mg Orally Once a day 1 tablet at bedtime 24h 1 June, 90 days Active RESULTS No Results PROCEDURES No Known procedures INSTRUCTIONS MEDICATIONS ADMINISTERED No Known Medications MEDICAL (GENERAL) HISTORY Type Description Date Medical History anxiety Medical History hypertension Medical History depression Medical History hypertriglyceridemia Medical History fomer smoker- quit 2017 Surgical History right inguinal hernia repair Hospitalization History Surgery only
--- OUTSIDE RECORDS SUMMARY | 2019-04-29 14:05 | XMS REPORT ---
Author Author Bran CAMARILLO Organization [facility] Address [address] [place] [address] Care Team Providers Care Motorcycle Designer Name Role Phone BELLA CAMARILLO Unavailable PROBLEMS Type Condition ICD9-CM Code [id number] Code Onset Dates Condition S tatus SNOMED Code Problem Anxiety associated with depression F41.8 Active 492872366 Problem Family history of cancer Z80.9 Activ e 056193445 Problem Routine health maintenance Z00.00 Act [facility] 119258061 Problem Overweight (BMI 25.0-29.9) E66.3 Act [facility] 526195232 Problem Panic disorder/agoraphobia, mild agrphob c avoid/panc attck partl rmssn F40.01 Active 44838361 Problem Major depression, melancholic type F32.9 Active 532710146 Problem Controlled substance agreement signed Z79.899 Active 237913721 Problem Social phobia, generalized F40.11 Act [facility] 49689889 Problem Adjustment disorder with anxiety F43.22 Active 26986940 Problem Hypertriglyceridemia without hypercholesterolemia E78.1 Active 162703423 Problem Hypertension I10 Active 5540486 3 Problem Family history of diabetes mellitus Z83.3 Active 664608363 Problem Family history of heart disease Z82.49 Active 446747725 Problem Tobacco abuse counseling Z71.6 Activ e 525478847 Problem Tobacco abuse Z72.0 Active 850052 05 Problem Illicit drug use F19.90 Active 307 340754 ALLERGIES Substance Reaction Event Type Date Status N.K.D.A. Unknown Non Drug Allergy Feb, Unknown SOCIAL HISTORY No smoking Hx information available PLAN OF CARE Activity Details Follow Up 4 Weeks Reason:anxiety follo w up VITAL SIGNS Height 69 in 2016-02-29 Weight 206.7 lbs 2016-02-29 Temperature 97.7 degrees Fahrenheit 2016-02-29 Heart Rate 74 bpm 2016-02-29 Respiratory Rate 18 2016-02-29 BMI 30.52 kg/m2 2016-02-29 Blood pressure systolic 133 mmHg 2016-02-29 Blood pressure diastolic 84 mmHg 2016-02-29 MEDICATIONS Medication Instructions Dosage Frequency Start Date End Date Duration S ingrid Atenolol 25 MG Orally Once a day 1 tablet 24h May, 9 0 days Active Lexapro 10 mg Orally Once a day 1 tablet 24h Feb, 30 day(s) Active Clonazepam 0.5 MG Orally Twice a day PRN 1 tablet Feb, 28 days Active Trazodone HCl 50 MG Orally Once a day 1-2 tablet at bedtime 24h June, 90 days Active Lisinopril 10 mg Orally Once a day 1 tablet 24h May, 90 days Active RESULTS Name Result Date Reference Range THYROID ANALYZER 2016-02-29 TSH 1.400 0.450-4.500 A1C 2016-02-29 Hemoglobin A1c 5.7 4.8-5.6 CBC 2016-02-29 WBC 11.8 3.4-10.8 RBC 4.94 4.14-5.80 Hemoglobin 15.3 12.6-17.7 Hematocrit 44.4 37.5-51.0 MCV 90 79-97 MCH 31.0 26.6-33.0 MCHC 34.5 31.5-35.7 RDW 13.6 12.3-15.4 Platelets 351 150-379 Neutrophils 59 Lymphs 32 Monocytes 7 Eos 2 Basos 0 Immature Cells Neutrophils (Absolute) 7.0 1.4-7.0 Lymphs (Absolute) 3.8 0.7-3.1 Monocytes(Absolute) 0.8 0.1-0.9 Eos (Absolute) 0.2 0.0-0.4 Baso (Absolute) 0.0 0.0-0.2 Immature Granulocytes Immature Grans (Abs) NR Hematology Comments: Note: LIPID PANEL 2016-02-29 Cholesterol, Total 169 100-199 Triglycerides 551 0-149 HDL Cholesterol 24 >39 VLDL Cholesterol Charles 5-40 LDL Cholesterol Calc 0-99 CMP 2016-02-29 Glucose, Serum 82 65-99 BUN 9 6-20 Creatinine, Serum 0.99 0.76-1.27 eGFR If NonAfricn Am 102 >59 eGFR If Africn Am 118 >59 BUN/Creatinine Ratio 9 8-19 Sodium, Serum 142 134-144 Potassium, Serum 4.7 3.5-5.2 Chloride, Serum 100 96-106 Carbon Dioxide, Total 23 18-29 Calcium, Serum 9.7 8.7-10.2 Protein, Total, Serum 7.4 6.0-8.5 Albumin, Serum 4.5 3.5-5.5 Globulin, Total 2.9 1.5-4.5 A/G Ratio 1.6 1.1-2.5 Bilirubin, Total 0.2 0.0-1.2 Alkaline Phosphatase, S 91 39-117 AST (SGOT) 23 0-40 ALT (SGPT) 41 0-44 AMERITOX 2016-02-29 PROCEDURES Procedure Date Ordered Related Diagnosis Body Site No Charge Feb 29, 2016 Office Visit, Est Pt., Level 4 Feb 29, 2016 VENIPUNCT, ROUTINE* Feb 29, 2016 ASSAY THYROID STIM HORMONE Feb 29, 2016 GLYCATED HEMOGLOBIN TEST Feb 29, 2016 COMPLETE CBC W/AUTO DIFF WBC Feb 29, 2016 LIPID PANEL Feb 29, 2016 COMPREHEN METABOLIC PANEL Feb 29, 2016 IMMUNIZATIONS No Known Immunizations
--- OUTSIDE RECORDS SUMMARY | 2019-04-29 14:05 | XMS REPORT ---
Author Author Bran CAMARILLO Organization [facility] Address [address] [place] [address] Care Team Providers Care Writing Center Director Name Role Phone BELLA CAMARILLO Unavailable PROBLEMS Type Condition ICD9-CM Code JKH36-EH Code Onset Dates Condition S tatus SNOMED Code Problem Anxiety associated with depression F41.8 Active 055672605 Problem Family history of cancer Z80.9 Activ e 425297727 Problem Routine health maintenance Z00.00 Act [facility] 334191013 Problem Overweight (BMI 25.0-29.9) E66.3 Act [place] 492729392 Problem Panic disorder/agoraphobia, mild agrphob c avoid/panc attck partl rmssn F40.01 Active 10967642 Problem Major depression, melancholic type F32.9 Active 238183238 Problem Controlled substance agreement signed Z79.899 Active 118815287 Problem Social phobia, generalized F40.11 Act [place] 36725994 Problem Adjustment disorder with anxiety F43.22 Active 72795894 Problem Hypertriglyceridemia without hypercholesterolemia E78.1 Active 889384931 Problem Hypertension I10 Active 7361735 3 Problem Family history of diabetes mellitus Z83.3 Active 714293736 Problem Family history of heart disease Z82.49 Active 552078972 Problem Tobacco abuse counseling Z71.6 Activ e 165964541 Problem Tobacco abuse Z72.0 Active 048623 05 Problem Illicit drug use F19.90 Active 307 428397 ALLERGIES No Known Allergies SOCIAL HISTORY Never Assessed PLAN OF CARE Activity Details Follow Up 3 Months Reason:chm/anxiety VITAL SIGNS Height 69 in 2016-04-11 Weight 195 lbs 2016-04-11 Temperature 98.4 degrees Fahrenheit 2016-04-11 Heart Rate 60 bpm 2016-04-11 Respiratory Rate 18 2016-04-11 BMI 28.79 kg/m2 2016-04-11 Blood pressure systolic 130 mmHg 2016-04-11 Blood pressure diastolic 70 mmHg 2016-04-11 MEDICATIONS Medication Instructions Dosage Frequency Start Date End Date Duration S ingrid Atenolol 25 MG Orally Once a day 1 tablet 24h Active Atenolol 25 MG Orally Once a day 1 tablet 24h May, 9 0 days Active Gemfibrozil 600 MG Orally Twice a day, 30 min before meals 1 tablet Feb, 45 days Active Lexapro 10 mg Orally Once a day 1 tablet 24h Feb, 90 days Active Clonazepam 0.5 MG Orally Twice a day PRN 1 tablet Feb, 28 days Active Lisinopril 10 mg Orally Once a day 1 tablet 24h May, 90 days Active Trazodone HCl 50 mg Orally Once a day 1-2 tablet at bedtime 24h June, 15 days Active RESULTS No Results PROCEDURES No Known procedures IMMUNIZATIONS No Known Immunizations MEDICAL (GENERAL) HISTORY Type Description Date Medical History anxiety Medical History hypertension Surgical History right inguinal hernia repair Hospitalization History Surgery only
--- OUTSIDE RECORDS SUMMARY | 2019-04-29 14:05 | XMS REPORT ---
Author Author Bran CAMARILLO Organization [facility] Address [address] [place] [address] Care Team Providers Care Foundry Manager Name Role Phone BELLA CAMARILLO Unavailable PROBLEMS Type Condition ICD9-CM Code ZCT06-GD Code Onset Dates Condition S tatus SNOMED Code Problem Tobacco abuse Z72.0 Active 858917 05 Problem Tobacco abuse counseling Z71.6 Activ e 677238442 Problem Hypertension I10 Active 1075344 3 Problem Hypertriglyceridemia without hypercholesterolemia E78.1 Active 064953813 Problem Anxiety associated with depression F41.8 Active 982862742 Problem Overweight (BMI 25.0-29.9) E66.3 Act [place] 241137322 Problem Major depression, melancholic type F32.9 Active 952687528 Problem Panic disorder/agoraphobia, mild agrphob c avoid/panc attck partl rmssn F40.01 Active 33185099 Problem Controlled substance agreement signed Z79.899 Active 964785793 Problem Social phobia, generalized F40.11 Act [place] 21216820 Problem Adjustment disorder with anxiety F43.22 Active 49936875 ALLERGIES No Information ENCOUNTERS Encounter Location Date Diagnosis [facility] [address] [facility] [id number] [address] [place] [phone] Aug, [facility] [address] [facility] [id number] [address] [place] [phone] 13 Jul, 2017 Anxiety associated with depr ession F41.8 and Hypertension I10 [facility] [address] [place] [id number] [address] [place] [address] 13 Mar, 2017 Hypertension I10 ; Anxiety a ssociated with depression F41.8 ; Tobacco abuse Z72.0 ; Tobacco abuse counseling Z71.6 ; Hypertriglyceridemia without hypercholesterolemia E78.1 ; Overweight (BMI 25.0-29.9) E66.3 ; Social phobia, generalized F40.11 and Panic disorder/agoraphobia, mild agrphobc avoid/panc attck partl rmssn F40.01 [place] [address] [address] 12 Mar, 2017 Controlled substance agreeme nt signed Z79.899 [place] [address] [address] Feb, Hypertension I10 ; Anxiety a ssociated with depression F41.8 and Adjustment disorder with anxiety F43.22 [place] [address] [address] Feb, [place] [address] [address] Aug, Anxiety associated with depr ession F41.8 and Adjustment disorder with anxiety F43.22 [place] [address] [address] Jul, Hypertension I10 ; Adjustmen t disorder with anxiety F43.22 ; Hypertriglyceridemia without hypercholesterolemia E78.1 ; Overweight (BMI 25.0- 29.9) E66.3 and Major depression, melancholic type F32.9 [place] [address] [address] Apr, Major depression, melancholi c type F32.9 and Anxiety associated with depression F41.8 [place] [address] [address] Mar, Hypertension I10 ; Major dep ression, melancholic type F32.9 ; Hypertriglyceridemia without hypercholesterolemia E78.1 and Overweight (BMI 25.0-29.9) E66.3 [place] [address] [address] Feb, Family history of heart dise ase Z82.49 [place] [address] [address] Feb, [place] [address] [place] [id number] [address] [place] [address] Feb, [address] [address] Feb, Adjustment disorder with anx iety F43.22 ; Social phobia, generalized F40.11 ; Panic disorder/agoraphobia, mild agrphobc avoid/panc attck partl rmssn F40.01 and Major depression, melancholic type F32.9 [place] [id number] [address] [place] [address] Feb, Hypertension I10 ; Anxiety a ssociated with depression F41.8 ; Controlled substance agreement signed Z79.899 ; Routine health maintenance Z00.00 and Family history of diabetes mellitus Z83.[address] [address] 08 Oct, 2015 Essential hypertension I10 ; Anxiety F41.9 and Primary insomnia F51.[address] [address] Sep, [address] [address] June, Hypertension I10 and Anxiety associated with depression F41.[address] [address] May, Routine health maintenance Z 00.00 ; [...] request PLAN OF CARE VITAL SIGNS MEDICATIONS Unknown Medications RESULTS No Results PROCEDURES No Known procedures INSTRUCTIONS MEDICATIONS ADMINISTERED No Known Medications MEDICAL (GENERAL) HISTORY Type Description Date Medical History anxiety Medical History hypertension Surgical History right inguinal hernia repair Hospitalization History Surgery only
--- OUTSIDE RECORDS SUMMARY | 2019-04-29 14:05 | XMS REPORT ---
Author Author Bran CAMARILLO Organization [facility] Address [address] [place] [address] Care Team Providers Care Cart Attendant Name Role Phone BELLA CAMARILLO Unavailable PROBLEMS Type Condition ICD9-CM Code [id number] Code Onset Dates Condition S tatus SNOMED Code Problem Anxiety associated with depression F41.8 Active 982572256 Problem Family history of cancer Z80.9 Activ e 942302610 Problem Routine health maintenance Z00.00 Act [place] 588685960 Problem Overweight (BMI 25.0-29.9) E66.3 Act [place] 938849706 Problem Panic disorder/agoraphobia, mild agrphob c avoid/panc attck partl rmssn F40.01 Active 55355868 Problem Major depression, melancholic type F32.9 Active 263436644 Problem Controlled substance agreement signed Z79.899 Active 226194954 Problem Social phobia, generalized F40.11 Act [place] 09163033 Problem Adjustment disorder with anxiety F43.22 Active 80763563 Problem Hypertriglyceridemia without hypercholesterolemia E78.1 Active 778998121 Problem Hypertension I10 Active 2294525 3 Problem Family history of diabetes mellitus Z83.3 Active 264770805 Problem Family history of heart disease Z82.49 Active 920875372 Problem Tobacco abuse counseling Z71.6 Activ e 197888941 Problem Tobacco abuse Z72.0 Active 313017 05 Problem Illicit drug use F19.90 Active 307 284297 ALLERGIES Unknown Allergies SOCIAL HISTORY No smoking Hx information available PLAN OF CARE VITAL SIGNS MEDICATIONS Medication Instructions Dosage Frequency Start Date End Date Duration S tatus Gemfibrozil 600 MG Orally Twice a day, 30 min before meals 1 tablet Feb, 30 day(s) Active RESULTS No Results PROCEDURES No Known procedures IMMUNIZATIONS No Known Immunizations
--- OUTSIDE RECORDS SUMMARY | 2019-04-29 14:05 | XMS REPORT | Continuity of Care Document ---
Author Organization Unknown Address Unknown Phone Unavailable Allergies There is no data. Medications There is no data. Problems Date Dx Coded Attending Type Code Diagnosis Diagnosed By 01/12/1536 TIMOTHY, SHARMIN FLUME TENDER Ot M75.91 SHOULDER LESION, UNSPECIFIED, RIGHT SHOU 10/18/2017 TIMOTHY, SHARMIN FLUME TENDER Ot M75.91 SHOULDER LESION, UNSPECIFIED, RIGHT SHOU 10/29/2017 TIMOTHY, SHARMIN FLUME TENDER Ot M75.91 SHOULDER LESION, UNSPECIFIED, RIGHT SHOU 04/29/2019 TIMOTHY, SHARMIN FLUME TENDER Ot M25.511 PAIN IN RIGHT SHOULDER Procedures There is no data. Results Test Result Range THYROID ANALYZER - 09/04/17 17:18 TSH 1.25 mIU/L 0.40-4.50 PDM - PAIN MGMT (PROFILE 3 WITH CONFIRMA TION) - 09/04/17 17:18 Creatinine 41.5 mg/dL > or = 20.0 pH 5.88 4.5 - 9.0 Oxidant NEGATIVE mcg/mL <200 Amphetamines NEGATIVE ng/mL <500 medMATCH Amphetamines CONSISTENT NRG Benzodiazepines NEGATIVE ng/mL <100 medMATCH Benzodiazepines CONSISTENT NRG Marijuana Metabolite NEGATIVE ng/mL <20 medMATCH Marijuana Metab CONSISTENT NRG Cocaine Metabolite NEGATIVE ng/mL <150 medMATCH Cocaine Metab CONSISTENT NRG Opiates NEGATIVE ng/mL <100 medMATCH Opiates CONSISTENT NRG Oxycodone NEGATIVE ng/mL <100 medMATCH Oxycodone CONSISTENT NRG COMMENT NRG PDM - 09 PANEL (PROFILE 1) - 11/20/18 10 :34 Prescribed Drug 1 Clonazepam NRG Creatinine 6.7 mg/dL > or = 20.0 pH 5.2 4.5-9.0 Oxidant NEGATIVE mcg/mL <200 Amphetamines NEGATIVE ng/mL <500 medMATCH Amphetamines CONSISTENT NRG Benzodiazepines NEGATIVE ng/mL <100 medMATCH Benzodiazepines INCONSISTENT N RG Marijuana Metabolite NEGATIVE ng/mL <20 medMATCH Marijuana Metab CONSISTENT NRG Cocaine Metabolite NEGATIVE ng/mL <150 medMATCH Cocaine Metab CONSISTENT NRG Opiates NEGATIVE ng/mL <100 medMATCH Opiates CONSISTENT NRG Oxycodone NEGATIVE ng/mL <100 medMATCH Oxycodone CONSISTENT NRG COMMENT NRG Specific [place] 1.024 > or = 1.003 Barbiturates NEGATIVE ng/mL <300 medMATCH Barbiturates CONSISTENT NRG Methadone Metabolite NEGATIVE ng/mL <100 medMATCH Methadone Metab CONSISTENT NRG Phencyclidine NEGATIVE ng/mL <25 medMATCH Phencyclidine CONSISTENT NRG Encounters ACCT No. Visit Date/Time Discharge Status Pt. Type Provider Facility Loc./Unit Complaint [id number] 04/08/2019 15:15:00 04/08/2019 23:59: 59 CLS Outpatient KRISTINA AYALA [facility] [id number] 11/20/2018 09:00:00 Document Registration [id number] 09/04/2017 16:20:00 Document Registration [id number] 07/19/2018 15:01:00 019 23:59:59 CLS Outpatient SHARMIN AGUIRRE [facility] RAD PAIN IN RIGHT SHOULDER [id number] 10/29/2017 15:09:00 018 15:37:00 DIS Outpatient SHARMIN AGUIRRE [facility] REHAB R SHOULDER TENDONITIS [id number] 08/06/2017 14:58:00 018 23:59:59 CLS Outpatient SHARMIN AGUIRRE [facility] OCC PAIN RIGHT SHOULDER [id number] 04/29/2019 12:21:[address] Emergency CHITO LOPEZ DO [facility] ER FS DIARRHEA; DARK STOOL; VOMITI NG
--- OUTSIDE RECORDS SUMMARY | 2019-04-29 14:05 | XMS REPORT ---
Author Author Bran CAMARILLO Organization [facility] Address [address] [place] [address] Care Team Providers Care Customer Contact Representative Name Role Phone CAMARILLOLYDIA McleodELE Unavailable PROBLEMS Type Condition ICD9-CM Code [id number] Code Onset Dates Condition S tatus SNOMED Code Problem Tobacco abuse Z72.0 Active 149152 05 Problem Tobacco abuse counseling Z71.6 Activ e 271932837 Problem Hypertension I10 Active 5933555 3 Problem Hypertriglyceridemia without hypercholesterolemia E78.1 Active 166125960 Problem Anxiety associated with depression F41.8 Active 692440535 Problem Overweight (BMI 25.0-29.9) E66.3 Act [place] 687958849 Problem Major depression, melancholic type F32.9 Active 306907286 Problem Panic disorder/agoraphobia, mild agrphob c avoid/panc attck partl rmssn F40.01 Active 31846214 Problem Controlled substance agreement signed Z79.899 Active 655489635 Problem Social phobia, generalized F40.11 Act [place] 95344064 Problem Adjustment disorder with anxiety F43.22 Active 72027912 ALLERGIES No Information ENCOUNTERS Encounter Location Date Diagnosis [facility] [address] [facility] [id number] [address] [place] [phone] 13 Mar, 2017 Hypertension I10 ; Anxiety a ssociated with depression F41.8 ; Tobacco abuse Z72.0 ; Tobacco abuse counseling Z71.6 ; Hypertriglyceridemia without hypercholesterolemia E78.1 ; Overweight (BMI 25.0-29.9) E66.3 ; Social phobia, generalized F40.11 and Panic disorder/agoraphobia, mild agrphobc avoid/panc attck partl rmssn F40.01 [facility] [address] [facility] [id number] [address] [place] [id number] 12 Mar, 2017 Controlled substance agreeme nt signed Z79.899 [place] [address] [address] Feb, Hypertension I10 ; Anxiety a ssociated with depression F41.8 and Adjustment disorder with anxiety F43.22 [place] [address] [address] Feb, [place] [address] [address] Aug, Anxiety associated with depr ession F41.8 and Adjustment disorder with anxiety F43.[address] [address] Jul, Hypertension I10 ; Adjustmen t disorder with anxiety F43.22 ; Hypertriglyceridemia without hypercholesterolemia E78.1 ; Overweight (BMI 25.0- 29.9) E66.3 and Major depression, melancholic type F32.[address] [address] Apr, Major depression, melancholi c type F32.9 and Anxiety associated with depression F41.[address] [address] Mar, Hypertension I10 ; Major dep ression, melancholic type F32.9 ; Hypertriglyceridemia without hypercholesterolemia E78.1 and Overweight (BMI 25.0-29.9) E66.3 [place] [address] [address] Feb, Family history of heart dise ase Z82.[address] [address] Feb, [address] [address] Feb, [place] [address] [address] Feb, Adjustment disorder with anx iety F43.22 ; Social phobia, generalized F40.11 ; Panic disorder/agoraphobia, mild agrphobc avoid/panc attck partl rmssn F40.01 and Major depression, melancholic type F32.9 [place] [address] [place] [id number] [address] [place] [phone] 17 Feb, 2016 Hypertension I10 ; Anxiety a ssociated with depression F41.8 ; Controlled substance agreement signed Z79.899 ; Routine health maintenance Z00.00 and Family history of diabetes mellitus Z83.3 [place] [address] [address] Oct, Essential hypertension I10 ; Anxiety F41.9 and Primary insomnia F51.01 [place] [address] [address] [place] [id number] [address] [place] [phone] Sep, [place] [address] [address] June, Hypertension I10 and Anxiety associated with depression F41.8 [place] [address] [address] [place] [id number] [address] [place] [address] May, Routine health maintenance Z 00.00 ; [...] Feb, 28 days Active Trazodone HCl 50 mg Orally Once a day 1-2 tablet at bedtime 24h June, 90 days Active RESULTS No Results PROCEDURES No Known procedures INSTRUCTIONS MEDICATIONS ADMINISTERED No Known Medications MEDICAL (GENERAL) HISTORY Type Description Date Medical History anxiety Medical History hypertension Surgical History right inguinal hernia repair Hospitalization History Surgery only
--- OUTSIDE RECORDS SUMMARY | 2019-04-29 14:05 | XMS REPORT ---
Author Author Bran CAMARILLO Organization [facility] Address [address] [place] [address] Care Team Providers Care Any Commodity Buyer Name Role Phone BELLA CAMARILLO Unavailable PROBLEMS Type Condition ICD9-CM Code HJH07-EL Code Onset Dates Condition S tatus SNOMED Code Problem Anxiety associated with depression F41.8 Active 342056113 Problem Family history of cancer Z80.9 Activ e 437745424 Problem Routine health maintenance Z00.00 Act [place] 858340671 Problem Overweight (BMI 25.0-29.9) E66.3 Act [place] 531589726 Problem Panic disorder/agoraphobia, mild agrphob c avoid/panc attck partl rmssn F40.01 Active 15565752 Problem Major depression, melancholic type F32.9 Active 239699985 Problem Controlled substance agreement signed Z79.899 Active 829173896 Problem Social phobia, generalized F40.11 Act [place] 53829587 Problem Adjustment disorder with anxiety F43.22 Active 81613319 Problem Hypertriglyceridemia without hypercholesterolemia E78.1 Active 298310542 Problem Hypertension I10 Active 7406785 3 Problem Family history of diabetes mellitus Z83.3 Active 158461939 Problem Family history of heart disease Z82.49 Active 081561214 Problem Tobacco abuse counseling Z71.6 Activ e 861676773 Problem Tobacco abuse Z72.0 Active 319299 05 Problem Illicit drug use F19.90 Active 307 840968 ALLERGIES Unknown Allergies SOCIAL HISTORY No smoking Hx information available PLAN OF CARE VITAL SIGNS MEDICATIONS Unknown Medications RESULTS No Results PROCEDURES No Known procedures IMMUNIZATIONS No Known Immunizations
--- OUTSIDE RECORDS SUMMARY | 2019-04-29 14:05 | XMS REPORT ---
Author Author Bran CAMARILLO Organization [facility] Address [address] [place] [address] Care Team Providers Care Video Journalist Name Role Phone BELLA CAMARILLO Unavailable PROBLEMS Type Condition ICD9-CM Code RFV28-QS Code Onset Dates Condition S tatus SNOMED Code Problem Hypertriglyceridemia without hypercholesterolemia E78.1 Active 167257257 Problem Hypertension I10 Active 7226254 3 Problem Anxiety associated with depression F41.8 Active 785757664 Problem Neuropathy G62.9 Active 287008055 Problem Overweight (BMI 25.0-29.9) E66.3 Act [place] 644136208 Problem Adjustment disorder with anxiety F43.22 Active 50326623 Problem Controlled substance agreement signed Z79.899 Active 744379584 Problem Panic disorder/agoraphobia, mild agrphob c avoid/panc attck partl rmssn F40.01 Active 67356659 Problem Social phobia, generalized F40.11 Act [place] 73370862 ALLERGIES No Information ENCOUNTERS Encounter Location Date Diagnosis [place] [id number] [facility] [id number] [address] [place] [phone] Oct, Pain in right elbow M25.521 and Anxiety associated with depression F41.8 [facility] [address] [facility] [id number] [address] [place] [phone] Aug, [facility] [address] [facility] [id number] [address] [place] [phone] Aug, Anxiety associated with depr ession F41.8 ; Hypertension I10 ; Hypertriglyceridemia without hypercholesterolemia E78.1 ; Pain in right elbow M25.521 ; Pain in left elbow M25.522 ; Neuropathy G62.9 and Overweight (BMI 25.0-29.9) E66.3 [facility] [address] [facility] [id number] [address] [place] [phone] Jul, Anxiety associated with depr ession F41.8 and Hypertension I10 [place] [address] [address] 13 Mar, 2017 Hypertension I10 ; Anxiety a ssociated with depression F41.8 ; Tobacco abuse Z72.0 ; Tobacco abuse counseling Z71.6 ; Hypertriglyceridemia without hypercholesterolemia E78.1 ; Overweight (BMI 25.0-29.9) E66.3 ; Social phobia, generalized F40.11 and Panic disorder/agoraphobia, mild agrphobc avoid/panc attck partl rmssn F40.01 [place] [address] [address] 12 Mar, 2017 Controlled substance agreeme nt signed Z79.899 [place] [address] [address] Feb, Hypertension I10 ; Anxiety a ssociated with depression F41.8 and Adjustment disorder with anxiety F43.22 [place] [address] [address] Feb, [place] [address] [address] Aug, Anxiety associated with depr ession F41.8 and Adjustment disorder with anxiety F43.22 [place] [address] [address] Jul, Hypertension I10 ; Adjustmen t disorder with anxiety F43.22 ; Hypertriglyceridemia without hypercholesterolemia E78.1 ; Overweight (BMI 25.0- 29.9) E66.3 and Major depression, melancholic type F32.9 [place] [address] [place] [id number] [address] [place] [phone] Apr, Major depression, melancholi c type F32.9 and Anxiety associated with depression F41.8 [place] [address] [address] Mar, Hypertension I10 ; Major dep ression, melancholic type F32.9 ; Hypertriglyceridemia without hypercholesterolemia E78.1 and Overweight (BMI 25.0-29.9) E66.3 [place] [address] [address] Feb, Family history of heart dise ase Z82.[address] [address] Feb, [place] [address] [address] Feb, [address] [address] Feb, Adjustment disorder with anx iety F43.22 ; Social phobia, generalized F40.11 ; Panic disorder/agoraphobia, mild agrphobc avoid/panc attck partl rmssn F40.01 and Major depression, melancholic type F32.[address] [address] Feb, Hypertension I10 ; Anxiety a ssociated with depression F41.8 ; Controlled substance agreement signed Z79.899 ; Routine health maintenance Z00.00 and Family history of diabetes mellitus Z83.[address] [address] Oct, Essential hypertension I10 ; Anxiety F41.9 and Primary insomnia F51.01 [place] [id number] [address] [place] [address] Sep, [address] [address] June, Hypertension I10 and Anxiety associated with depression F41.8 [place] [id number] [address] [place] [address] May, Routine health maintenance Z 00.00 ; Hypertension I10 ; Family history of diabetes mellitus Z83.3 ; Family history of heart disease Z82.49 ; Family history of cancer Z80.9 ; Anxiety associated with depression F41.8 ; Illicit drug use F19.90 ; Tobacco abuse Z72.0 and Tobacco abuse counseling Z71.6 IMMUNIZATIONS No Known Immunizations SOCIAL HISTORY Never Assessed REASON FOR VISIT Med per lab result PLAN OF CARE VITAL SIGNS MEDICATIONS Medication Instructions Dosage Frequency Start Date End Date Duration S tatus Crestor 20 mg Orally Once a day 1 tablet 24h Aug, 30 day(s) Active RESULTS No Results PROCEDURES No Known procedures INSTRUCTIONS MEDICATIONS ADMINISTERED No Known Medications MEDICAL (GENERAL) HISTORY Type Description Date Medical History anxiety Medical History hypertension Medical History depression Medical History hypertriglyceridemia Medical History fomer smoker- quit 2017 Surgical History right inguinal hernia repair Hospitalization History Surgery only
--- NOTE | 2019-04-29 14:29 | Diagnostic Imaging Report ---
PROCEDURE: CT abdomen and pelvis with contrast. TECHNIQUE: Multiple contiguous axial images were obtained through the abdomen and pelvis after administration of intravenous contrast. Auto Exposure Controls were utilized during the CT exam to meet ALARA standards for radiation dose reduction. INDICATION: Diarrhea and vomiting. COMPARISON: No prior studies are available for comparison. FINDINGS: The lung bases are clear. There is some mild generalized low density throughout the liver, consistent with hepatic steatosis. No discrete liver mass is detected. The gallbladder is unremarkable. No biliary ductal dilatation is seen. The pancreas and spleen are unremarkable. No adrenal mass is detected. The kidneys are unremarkable. The aorta is nonaneurysmal. No central retroperitoneal or mesenteric lymphadenopathy is seen. The bowel loops appear to be of normal caliber. No obstruction is seen. There is no free fluid or fluid collection identified. The bladder and prostate are unremarkable. IMPRESSION: Unremarkable CT of the abdomen and pelvis. No acute feature is detected. Dictated by: Dictated on workstation # [id number]
[2019-04-29] MEDS ORDERED: HYDR-4226 PO (14:44)
[2019-04-29] MEDS ORDERED: ONDA4TAB11 PO (14:44)
[2019-04-29] MEDS ORDERED: OMEP20TA33 PO (14:44)
[2019-04-29] MEDS ORDERED: IOHEXOL 350 MG/ML 100 ML (OMNIPAQUE 350) VIAL IV ONE (15:00)
[2019-04-29] MEDS ORDERED: HOLD METFORMIN - RECEIVED CONTRAST 20 ML VIAL IV SCH (15:00)
[2019-04-29] MEDS ORDERED: CATHETER FLUSH 10 ML SYR IV PRN (15:00)
[2019-04-29] MEDS ORDERED: NS 100 ML (IVPB) BAG IV ONE (15:00)
[2019-04-29 15:05] VITALS: BP 122/62
[2019-04-29] MEDS ORDERED: HOLD METFORMIN - RECEIVED CONTRAST 20 ML VIAL IV ONE (16:45)
[2019-04-29] MEDS ORDERED: CATHETER FLUSH 10 ML SYR IV SCH (22:00)
== END 2019-04-29 14:52 | disposition home or self-care (01) ==
LOC: EDUNIT# 12:19 → ER FS 12:21
DX: R10.13 Epigastric pain (principal); R11.2 Nausea with vomiting, unspecified; R19.7 Diarrhea, unspecified; K92.2 Gastrointestinal hemorrhage, unspecified
CPT/HCPCS: 36415; 74177; 80053; 82274; 83690; 85025; 85610; 85730

== ENCOUNTER → 2020-01-12 | Outpatient (CLI) | payer OTHER ==
[~2020-01-12] MED LIST: CATHETER FLUSH 10 ML SYR IV PRN; HOLD METFORMIN - RECEIVED CONTRAST 20 ML VIAL IV SCH; HYDR-4226 PO; IOHEXOL 350 MG/ML 100 ML (OMNIPAQUE 350) VIAL IV ONE; NS 100 ML (IVPB) BAG IV ONE; OMEP20TA33 PO; ONDA4TAB11 PO
--- NOTE | 2020-01-12 15:17 | Diagnostic Imaging Report ---
PROCEDURE: CT abdomen and pelvis with contrast. TECHNIQUE: Multiple contiguous axial images were obtained through the abdomen and pelvis after administration of intravenous contrast. Auto Exposure Controls were utilized during the CT exam to meet ALARA standards for radiation dose reduction. All CT scans use one or more of the following dose optimizing techniques: automated exposure control, MA and/or KvP adjustment based on patient size and exam type or iterative reconstruction. INDICATION: Pain and injury to the right groin. COMPARISON: Correlation is made with prior CT from 04/29/2019. FINDINGS: The lung bases are clear. The liver, gallbladder, pancreas and spleen are unremarkable. No adrenal mass is detected. Kidneys remain unremarkable. Aorta is non-aneurysmal. Bowel loops remain normal in caliber without evidence of obstruction. There is no free fluid or fluid collection. Bladder is unremarkable. The appendix is visualized in the right pelvis and appears unremarkable. No definite hernia is detected. IMPRESSION: Stable unremarkable CT of the abdomen and pelvis. No acute features detected. Dictated by: Dictated on workstation # [id number]
== END ==
LOC: RAD FS 14:03
PROVIDERS: ATTEND Nurse Practitioner Family
DX: S39.91XA Unspecified injury of abdomen, initial encounter (principal); X58.XXXA Exposure to other specified factors, initial encounter
CPT/HCPCS: 74177